=== PATIENT | male | born 1960 | race Caucasian/White ===

== ENCOUNTER 2021-11-21 08:32 | Outpatient (RCR) | payer BC ==
[~2021-11-21 08:32] MED LIST: NO HOME MEDICATIONS
== END 2021-11-24 ==
LOC: MKS.ESL.PT
DX: M79.662 Pain in left lower leg (principal)

== ENCOUNTER 2021-12-05 08:45 | Outpatient (RCR) | payer BC | END 2021-12-05 09:20 | disposition home or self-care (01) | LOC: MKS.ESL.PT 08:45 | DX: M79.662 Pain in left lower leg (principal) ==